=== PATIENT | female | born 1990 | race American Indian/Alaskan Native ===

== ENCOUNTER 2016-03-23 04:17 | Inpatient (IN) | payer SELFPAY ==
[2016-03-23] MEDS ORDERED: POLYCILLIN/NS 2 GM/100 ML 100 ML IV ONE (06:55)
--- NOTE | 2016-03-23 07:04 | History and Physical Report ---
History of Present Illness Date of examination: 03/23/16 Chief complaint: Painful contractions History of present illness: A 26-year-old at 35+2 weeks presents in active labor, she has had limited to no care this . She claims she just moved from [place] one week ago, she claims she had care in [place] but no records. 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 denies: smoking, alcohol abuse, prescription drug abuse, IV drug use - Obstetrical History Expected Date of Delivery: 04/25/16 Actual Gestation: 35 Week(s) 2 Day(s) : 4 Para: 2 Medications and Allergies Allergies Allergy/AdvReac Type Severity Reaction Status Date / Time acetaminophen [From Vicodin] AdvReac Intermediate Swelling Verified 03/20/15 13: 39 hydrocodone bitartrate AdvReac Intermediate Swelling Verified 03/20/15 13:39 [From Vicodin] Penicillins AdvReac Intermediate Swelling Verified 03/20/15 13:39 Home Medications Medication Instructions Recorded Confirmed Last Taken Type Vit#96/Ferrous Fum/FA 1 tab PO DAILY 05/19/14 03/20/15 05/19/14 17:00 History [ Tablet] 1 tab Docusate Sodium [Colace CAP] 100 mg PO BID PRN #30 capsule 03/21/15 Unknown Rx Morphine [Morphine ORAL SOLN 10 10 mg PO Q6H PRN #150 oral.liqd 03/21/15 Unknown Rx MG/5 ML] Active Meds: Active Medications Betamethasone Acet/Betameth SodPhos (Celestone Soluspan) 12 mg IM ONCE ONE Stop: 03/23/16 07:01 Ephedrine Sulfate (Ephedrine Sulfate) 10 mg IV Q2M PRN PRN Reason: Hypotension Stop: 03/23/16 07:00 Fentanyl (Sublimaze) 100 mcg IV Q2H PRN PRN Reason: Labor Pain Ampicillin Sodium (Polycillin/Ns 2 Gm/100 Ml) 100 mls @ 100 mls/hr IV ONCE ONE PRN Reason: Protocol Stop: 03/23/16 07:54 Ampicillin Sodium (Polycillin/Ns 1 Gm/50 Ml) 50 mls @ 100 mls/hr IV Q4HR SHYANNE PRN Reason: Protocol Lactated Ringer's (Lactated Ringers) 1,000 mls @ 125 mls/hr IV DIRECT SHYANNE Oxytocin/Sodium Chloride (Pitocin/Ns 20 Unit/1000ml Drip) 1,000 mls @ 125 mls/ hr IV DIRECT SHYANNE Oxytocin/Sodium Chloride (Pitocin/Ns 30 Unit/500ml) 500 mls @ 2 mls/hr IV TITR SHYANNE PRN Reason: Protocol Oxytocin/Sodium Chloride (Pitocin/Ns 30 Unit/500ml) 500 mls @ 1 mls/hr IV TITR SHYANNE; 1 MILLIUNITS/MIN PRN Reason: Protocol Lidocaine (Xylocaine 2%) 20 ml INFILTRATI ONCE ONE Stop: 03/23/16 06:56 Mineral Oil (Mineral Oil) 30 ml PO QHS PRN PRN Reason: Constipation Ondansetron HCl (Zofran) 4 mg IV Q8H PRN PRN Reason: Nausea And Vomiting Terbutaline Sulfate (Brethine) 0.25 mg SUB-Q ONCE PRN PRN Reason: Hyperstimulation/Hypertonicity Stop: 03/23/16 06:56 Terbutaline Sulfate (Brethine) 0.25 mg IVP ONCE PRN PRN Reason: Hyperstimulation/Hypertonicity Stop: 03/23/16 06:56 Review of Systems Constitutional: no fever, no chills Cardiovascular: no chest pain, no shortness of breath, no dyspnea on exertion, no paroxysmal nocturnal dyspnea Respiratory: no excessive sputum, no shortness of breath, no dyspnea on exertion Gastrointestinal: abdominal pain (Painful contractions), no nausea, no vomiting Genitourinary: no vaginal bleeding, no vaginal discharge, no leakage of fluid - Vital Signs Vital signs: Vital Signs Pulse Pulse Ox 86 99 03/23/16 04:37 03/23/16 04:37 Temp Pulse Resp BP Pulse Ox 98.5 F 94 H 134/75 99 03/23/16 04:42 03/23/16 06:48 03/23/16 05:37 03/23/16 06:48 - Physical Exam Cardiovascular: Regular rate, Normal S1, Normal S2 Lungs: Positive: Clear to auscultation, Normal air movement Abdomen: Positive: normal appearance, soft. Negative: distention, tenderness, guarding, rigidity Genitourinary (Female): Positive: normal external genitalia Vulva: both: normal Uterus: Positive: enlarged (EFW ~ 3500) Adnexa: both: normal Extremities: Positive: normal - Obstetrical FHR: category 1 Cervical Dilatation: 5 Results All other labs normal. Assessment and Plan A: 26 y/o at 35+2 wks in active labor P: -Admit -Obtain labs including and UDS -Epidural prn -Celestone course -Expectant mgt -Anticipate - Patient Problems (1) 35 to 36 weeks gestation of Current Visit: Yes Status: Acute (2) No care in current Current Visit: Yes Status: Acute Qualifiers: Trimester: first trimester Qualified Code(s): O09.31 - Supervision of with insufficient care, first trimester (3) labor Current Visit: Yes Status: Acute
[2016-03-23] MEDS ORDERED: ePHEDrine SULFATE IV PRN (08:00)
[2016-03-23] MEDS ORDERED: BRETHINE SUB-Q PRN (08:00)
[2016-03-23] MEDS ORDERED: PITOCin/NS 30 UNIT/500ML 500 ML IV SCH ×2 (08:00)
[2016-03-23] MEDS ORDERED: BRETHINE IVP PRN (08:00)
[2016-03-23] MEDS ORDERED: XYLOCAINE 2% INFILTRATI ONE (08:00)
[2016-03-23] MEDS ORDERED: ZOFRAN IV PRN (08:00)
[2016-03-23] MEDS ORDERED: MINERAL OIL PO PRN (08:00)
[2016-03-23] MEDS ORDERED: PITOCin/NS 20 UNIT/1000ML DRIP 1,000 ML IV SCH (08:00)
[2016-03-23] MEDS ORDERED: SUBLIMAZE IV PRN (08:00)
[2016-03-23] MEDS ORDERED: CELESTONE SOLUSPAN IM ONE (08:30)
[2016-03-23] MEDS: LACTATED RINGERS 1,000 ML IV SCH ×2 (08:31→21:00)
[2016-03-23] MEDS: CLEOCIN 900 MG/50 mL 50 ML IV SCH ×2 (08:33→21:00)
[2016-03-23 09:12] LABS: Hematocrit 28.7 % (30.3-42.9); Hemoglobin 9.3 gm/dl (10.1-14.3); Mean Corpuscular HGB Conc 33 % (30-34); Mean Corpuscular Volume 74 fl (79-97); Platelet Count 256 K/mm3 (140-440); Red Blood Count 3.86 M/mm3 (3.65-5.03); Red Cell Distribution Width 15.8 % (13.2-15.2); White Blood Count 9.2 K/mm3 (4.5-11.0)
[2016-03-23 09:24] LABS: Mean Corpuscular Hemoglobin 24 pg (28-32)
[2016-03-23 09:52] LABS: HIV-1 Antigen p24 Non React (Non React); HIVR-1/2 Ab Non React (Non React)
[2016-03-23] MEDS ORDERED: POLYCILLIN/NS 1 GM/50 ML 50 ML IV SCH (10:56)
--- NOTE | 2016-03-23 11:27 | Ultrasound Report ---
OB ultrasound: Transabdominal imaging. Gestation: Lilly Position: Cephalic Amniotic Fluid: WNL (7-24 cm) ARYA = 14.3 cm Placenta: Anterior Placental Grade: II Heart Rate: 152 BPM Cervical length: 2.2 cm (Normal > 3 cm) ANATOMY VISUALIZED: Stomach Kidneys Bladder Diaphragm Heart 3 Vessel Cord Abd. Cord Insert The following are not demonstrated due to maternal body habitus or lie: neuro, spine, 4 chamber heart. BPD: 8.57 cm = 34 w 4 d HC: 31.35 cm = 35 w 1 d AC: 29.93 cm = 33 w 6 d FL: 6.59 cm = 34 w 0 d HC/AC Ratio: 1.05 Cephalic Index: 83.4 Estimated Weight: 2350 grams Clinical age = 35 w 2 d EDC: 2-7-17 COMMENT: Short cervical length. No gestational abnormalities noted. BIOPHYSICAL PROFILE: 2 - breathing movements 2 - movements 2 - posture and tone 2 - Qualitative amniotic fluid volume 8 - TOTAL SCORE OF POSSIBLE 8 Heart Rate (bpm) 152
[2016-03-24] MEDS: CLEOCIN 900 MG/50 mL 50 ML IV SCH (05:41)
--- NOTE | 2016-03-24 07:45 | Progress Note ---
Assessment and Plan - Patient Problems (1) 35 to 36 weeks gestation of Diagnosis Date: 03/24/16 Current Visit: Yes Status: Acute Plan to address problem: A: IUP @ 35 3/7 weeks PTL - stable Advanced dilatation - stable. No further contractions P: Will continue with present management She may possible go home if not in labor after 2nd dose of Celestone @ 0830 (2) labor Diagnosis Date: 03/24/16 Current Visit: Yes Status: Acute Qualifiers: labor trimester: third trimester Fetus number: single or unspecified fetus Subjective - Subjective Date of service: 03/24/16 Principal diagnosis: IUP @ 35 3/7 weeks; PTL Interval history: Pt denies current contractions. Received 1st dose of Celestone 03/23/16 @ 0830. No complaints except bloody show. Patient reports: vaginal bleeding, movement normal, no new complaints, no loss of fluid, no contractions Objective - Vital Signs Vital Signs: Vital Signs - 12hr 03/23/16 03/23/16 03/23/16 20:00 20:06 20:19 Temperature 97.8 F Pulse Rate 81 81 Respiratory 16 Rate Blood Pressure 105/51 O2 Sat by Pulse 99 Oximetry 03/23/16 03/23/16 03/23/16 20:24 20:29 20:34 Temperature Pulse Rate 84 99 H 87 Respiratory Rate Blood Pressure O2 Sat by Pulse 98 97 98 Oximetry 03/23/16 03/23/16 03/23/16 20:39 20:44 20:49 Temperature Pulse Rate 96 H 86 83 Respiratory Rate Blood Pressure O2 Sat by Pulse 98 99 99 Oximetry 03/23/16 03/23/16 03/23/16 20:54 22:49 22:54 Temperature Pulse Rate 103 H 89 95 H Respiratory Rate Blood Pressure O2 Sat by Pulse 99 100 100 Oximetry 03/23/16 03/23/16 03/23/16 22:58 22:59 23:04 Temperature Pulse Rate 86 95 H 89 Respiratory Rate Blood Pressure 104/55 O2 Sat by Pulse 99 100 Oximetry 03/23/16 03/23/16 03/23/16 23:09 23:14 23:19 Temperature Pulse Rate 102 H 96 H 97 H Respiratory Rate Blood Pressure O2 Sat by Pulse 96 95 97 Oximetry 03/23/16 03/23/16 03/23/16 23:24 23:29 23:34 Temperature Pulse Rate 92 H 98 H 81 Respiratory Rate Blood Pressure O2 Sat by Pulse 95 97 98 Oximetry 03/23/16 03/23/16 03/23/16 23:39 23:44 23:49 Temperature Pulse Rate 88 84 94 H Respiratory Rate Blood Pressure O2 Sat by Pulse 97 96 97 Oximetry 03/23/16 03/23/16 03/24/16 23:54 23:59 00:04 Temperature Pulse Rate 102 H 107 H 108 H Respiratory Rate Blood Pressure O2 Sat by Pulse 96 97 97 Oximetry 03/24/16 03/24/16 03/24/16 00:09 00:14 00:19 Temperature Pulse Rate 93 H 90 91 H Respiratory Rate Blood Pressure O2 Sat by Pulse 97 96 96 Oximetry 03/24/16 03/24/16 03/24/16 00:24 00:29 00:34 Temperature Pulse Rate 86 92 H 84 Respiratory Rate Blood Pressure O2 Sat by Pulse 97 98 97 Oximetry 03/24/16 03/24/16 03/24/16 00:39 00:44 00:49 Temperature Pulse Rate 86 90 85 Respiratory Rate Blood Pressure O2 Sat by Pulse 97 96 98 Oximetry 03/24/16 03/24/16 03/24/16 00:54 00:59 01:04 Temperature Pulse Rate 86 88 94 H Respiratory Rate Blood Pressure O2 Sat by Pulse 98 98 97 Oximetry 03/24/16 03/24/16 03/24/16 01:09 01:14 01:19 Temperature Pulse Rate 83 79 85 Respiratory Rate Blood Pressure O2 Sat by Pulse 100 99 99 Oximetry 03/24/16 03/24/16 03/24/16 01:24 01:29 01:34 Temperature Pulse Rate 86 84 81 Respiratory Rate Blood Pressure O2 Sat by Pulse 99 100 100 Oximetry 03/24/16 03/24/16 03/24/16 01:39 01:44 01:49 Temperature Pulse Rate 79 81 98 H Respiratory Rate Blood Pressure O2 Sat by Pulse 100 100 100 Oximetry 03/24/16 03/24/16 01:54 01:59 Temperature Pulse Rate 87 76 Respiratory Rate Blood Pressure O2 Sat by Pulse 96 96 Oximetry - Exam Cardiovascular: Regular rate Lungs: Clear to auscultation Abdomen: Present: normal appearance, soft Uterus: Present: normal FHR: category 1 Uterine Contraction Monitor Mode: External Uterine Contraction Pattern: Absent Uterine Contraction Intensity: Mild - Labs Labs: Abnormal Labs 03/23/16 08:15 Hgb 9.3 L Hct 28.7 L MCV 74 L MCH 24 L RDW 15.8 H Laboratory Results - last 24 hr 03/23/16 03/23/16 03/23/16 08:15 08:15 08:15 WBC 9.2 RBC 3.86 Hgb 9.3 L Hct 28.7 L MCV 74 L MCH 24 L MCHC 33 RDW 15.8 H Plt Count 256 RPR Nonreactive Hep Bs Antigen Hepatitis C Antibody HIV 1&2 Antibody Rapid HIV P24 Antigen Rubella IgG Antibody Blood Type A POSITIVE Antibody Screen Negative 03/23/16 03/23/16 03/23/16 08:15 08:15 08:15 WBC RBC Hgb Hct MCV MCH MCHC RDW Plt Count RPR Hep Bs Antigen Non-reactive Hepatitis C Antibody Non-reactive HIV 1&2 Antibody Rapid Non react HIV P24 Antigen Non react Rubella IgG Antibody Immune Blood Type Antibody Screen
[2016-03-24 08:01] VITALS: BP 115/59
[2016-03-24] MEDS ORDERED: CELESTONE SOLUSPAN IM ONE (09:09)
--- NOTE | 2016-03-24 10:16 | Discharge Summary ---
Providers - Providers Date of Admission: 03/23/16 07:15 Date of discharge: 03/24/16 Attending physician: MARI HUMPHRIES MD Primary care physician: MARI HUMPHRIES MD Hospitalization Reason for admission: observation, labor Other procedures: none complications: none Discharge diagnosis: other (IUP @ 35 3/7 weeks; PTL - resolved.) Hospital course: Unremarkable. Pt received IV hydration and Celestone. She had no further contractions, and therefore discharged to home in stable condition. Condition at discharge: Good Disposition: DISCHARGED TO HOME OR SELFCARE - Discharge Diagnoses (1) 35 to 36 weeks gestation of Status: Acute (2) labor Status: Acute Qualifiers: labor trimester: third trimester Fetus number: single or unspecified fetus Plan - Provider Discharge Summary Activity: routine, no strenuous exercise Diet: routine Instructions: routine Additional instructions: [] Smoking cessation referral if applicable(refer to patient education folder for contact #) [] Refer to [facility] Booklet Call your doctor immediately for: * Fever > 100.5 * Heavy vaginal bleeding ( >1 pad per hour) * Severe persistent headache * Shortness of breath * Reddened, hot, painful area to leg or breast * Drainage or odor from incision. * Keep incision clean and dry at all times and follow doctor's instructions regarding bathing/showering - Follow up plan Follow up: MARI HARRIS MD [Primary Care Provider] - 3 Days Forms: KRISTEL Discharge Summary
== END 2016-03-24 11:00 | disposition home or self-care (01) | DRG 998 ==
LOC: TRG 04:17 → LD 07:15
PROVIDERS: ADMIT Obstetrics & Gynecology; ATTEND Obstetrics & Gynecology
DX: O09.33 Supervision of pregnancy with insufficient antenatal care, third trimester (principal); Z3A.35 35 weeks gestation of pregnancy; Z90.49 Acquired absence of other specified parts of digestive tract; Z88.6 Allergy status to analgesic agent; Z88.8 Allergy status to other drugs, medicaments and biological substances; Z88.0 Allergy status to penicillin
CPT/HCPCS: 36415; 76805; 76819; 85027; 86592; 86706; 86762; 86803; 86850; 86900; 86901; 87806; J0702; J3010; J7120